=== PATIENT | female | born 1945 | race Caucasian/White ===

== ENCOUNTER 2016-11-16 09:23 | Emergency (ER) | payer OTHER ==
[~2016-11-16 09:23] MED LIST: ALBU1.25 NEB; ALPR-475 PO; CLON-364 PO; DOXY100C2 PO; HYDR-3241 PO; IPRA14.7; IPRA14.7 IH; IPRA4AER INH; MAGN64TA9 PO; METH4TAB2 PO; MOME13HF2 INH; OMEP20CA9 PO; PRED20TA PO; TIOT18CA INH; pro-air
[2016-11-16 11:47] VITALS: BP 128/83
== END 2016-11-16 11:50 | disposition home or self-care (01) ==
LOC: ED 11:44
DX: F41.1 Generalized anxiety disorder (principal); I10 Essential (primary) hypertension; J44.9 Chronic obstructive pulmonary disease, unspecified
CPT/HCPCS: 71020; 93005; 99284

== ENCOUNTER 2017-05-08 01:00 | Inpatient (IN) | payer OTHER ==
[~2017-05-08] VITALS: Ht 157.5 cm; Wt 57.0 kg
[2017-05-08] MEDS ORDERED: SODIUM CHLORIDE 0.9% 1,000 ML IV ONE (01:14)
[2017-05-08] MEDS ORDERED: SODIUM CHLORIDE FLUSH 10ML SYR IVF ONE (01:30)
[2017-05-08] MEDS ORDERED: methylPREDNISolone SOD SUCC 125 MG/2 ML IVP ONE (01:30)
[2017-05-08] MEDS ORDERED: ALBUTEROL/IPRATROPIUM 2.5MG/0.5MG, 3 ML NEB ONE (01:30)
[2017-05-08 01:51] LABS: HEMATOCRIT 38.3 % (34.6-47.8); HEMOGLOBIN 12.4 g/dL (11.7-16.4); WHITE BLOOD COUNT 27.1 x10^3/uL (3.4-10)
[2017-05-08 01:59] LABS: ASPARTATE AMINO TRANSFERASE 37 U/L (15-37); BLOOD UREA NITROGEN 29 mg/dL (7-18)
[2017-05-08 02:04] LABS: IS PT STATUS REG ER OR PRE ER? YES
[2017-05-08 02:12] LABS: DIFF TOTAL CELLS COUNTED 100 CELL DIFF
[2017-05-08 02:12] LABS: ABG COLLECTION SITE RIGHT BRACHIAL
[2017-05-08 02:14] LABS: VERIFY COUNTS? YES
[2017-05-08 02:15] LABS: OVALOCYTES 1+
[2017-05-08] MEDS ORDERED: methylPREDNISolone SOD SUCC 125 MG/2 ML ONE (02:17)
[2017-05-08] MEDS ORDERED: CEFTRIAXONE PMX 1GM/50ML 50 ML IV ONE (02:30)
[2017-05-08] MEDS ORDERED: AZITHROMYCIN 500 MG in SODIUM CHLORIDE 0.9% 250 ML IV ONE (02:30)
[2017-05-08] MEDS ORDERED: SODIUM CHLORIDE 0.9% 1,000ML IVBOLUS ONE (02:30)
[2017-05-08] MEDS ORDERED: CEFTRIAXONE PMX 1GM/50ML 50 ML ONE (02:41)
[2017-05-08] MEDS ORDERED: ENOXAPARIN 40 MG/0.4 ML SQ SCH (03:30)
[2017-05-08] MEDS ORDERED: PHARMACY MAY ADJ FOR RENAL FX MC SCH (03:30)
[2017-05-08] MEDS ORDERED: GLUCAGON 1 MG IM PRN (03:30)
[2017-05-08] MEDS ORDERED: VANCOMYCIN PER PHARMACY IV SCH (03:30)
[2017-05-08] MEDS ORDERED: DEXTROSE 4 GM TAB.CHEW PO PRN (03:30)
[2017-05-08] MEDS ORDERED: ONDANSETRON 2MG/ML, 2ML IV PRN (03:30)
[2017-05-08] MEDS ORDERED: DEXTROSE 50%, 50ML SYRINGE IVPush PRN (03:30)
[2017-05-08] MEDS ORDERED: LEVOFLOXACIN/PMX 750MG/150ML 150 ML IVPB SCH (03:30)
[2017-05-08] MEDS ORDERED: ACETAMINOPHEN 325 MG TABLET PO PRN (03:30)
[2017-05-08] MEDS: morphine SULFATE 10 MG/ML, 1ML IV PRN ×2 (04:55→08:39)
[2017-05-08] MEDS: methylPREDNISolone SOD SUCC 125 MG/2 ML IVPush SCH ×3 (04:58→20:25)
[2017-05-08] MEDS ORDERED: PHARMACOKINETIC MONITORING MC PRN (05:00)
[2017-05-08] MEDS ORDERED: PHARMACOKINETIC CONSULTATION MC ONE (05:00)
[2017-05-08 05:21] VITALS: BP 129/79
[2017-05-08] MEDS: ALBUTEROL/IPRATROPIUM 2.5MG/0.5MG, 3 ML NPPB SCH ×4 (07:00→20:05)
[2017-05-08] MEDS: VANCOMYCIN PMX 1GM/200ML 200 ML IV SCH (07:23)
[2017-05-08] MEDS: INSULIN REGULAR 100 UNITS/ML, 3ML VIAL SQ-INSULIN SCH ×4 (07:38→20:55)
[2017-05-08] MEDS: SODIUM CHLORIDE FLUSH 10ML SYR IVF SCH ×2 (07:38→20:25)
[2017-05-08] MEDS: FLUTICASONE/VILANTEROL 200-25MCG/INH INH SCH (08:40)
[2017-05-08] MEDS ORDERED: SODIUM CHLORIDE 0.9% 1,000ML IV ONE (09:30)
[2017-05-08] MEDS: PIPERACILLIN/TAZO/PMX 4.5GM 100 ML IV SCH ×3 (09:57→22:14)
[2017-05-08 14:04] VITALS: BP 117/72
[2017-05-08] MEDS: HYDROcodone/APAP 5/325 TABLET PO PRN ×2 (16:04→20:25)
[2017-05-08 18:28] VITALS: BP 122/72
[2017-05-08] MEDS: RISPERIDONE 1 MG TABLET PO SCH (20:25)
[2017-05-09 01:05] VITALS: BP 93/57
[2017-05-09] MEDS: HYDROcodone/APAP 5/325 TABLET PO PRN ×5 (01:19→20:35)
[2017-05-09] MEDS: methylPREDNISolone SOD SUCC 125 MG/2 ML IVPush SCH ×3 (04:28→20:36)
[2017-05-09] MEDS: PIPERACILLIN/TAZO/PMX 4.5GM 100 ML IV SCH ×3 (04:28→16:00)
[2017-05-09] MEDS ORDERED: ENOXAPARIN 40 MG/0.4 ML SQ SCH (05:00)
[2017-05-09 05:08] LABS: HEMATOCRIT 29.2 % (34.6-47.8); HEMOGLOBIN 9.5 g/dL (11.7-16.4)
[2017-05-09 05:17] LABS: BLOOD UREA NITROGEN 32 mg/dL (7-18)
[2017-05-09 05:21] LABS: ASPARTATE AMINO TRANSFERASE 14 U/L (15-37)
[2017-05-09] MEDS: VANCOMYCIN PMX 1GM/200ML 200 ML IV SCH (07:20)
[2017-05-09] MEDS: ALBUTEROL/IPRATROPIUM 2.5MG/0.5MG, 3 ML NPPB SCH ×4 (07:25→18:41)
[2017-05-09 07:49] VITALS: BP 116/65
[2017-05-09] MEDS: INSULIN REGULAR 100 UNITS/ML, 3ML VIAL SQ-INSULIN SCH ×4 (08:40→20:36)
[2017-05-09] MEDS: SODIUM CHLORIDE FLUSH 10ML SYR IVF SCH ×2 (09:00→20:36)
[2017-05-09] MEDS: RISPERIDONE 1 MG TABLET PO SCH ×2 (10:11→20:35)
[2017-05-09] MEDS: FLUTICASONE/VILANTEROL 200-25MCG/INH INH SCH (10:12)
[2017-05-09 11:14] LABS: HEMATOCRIT 30.9 % (34.6-47.8); WHITE BLOOD COUNT 10.6 x10^3/uL (3.4-10)
[2017-05-09 13:42] VITALS: BP 151/75
[2017-05-09] MEDS ORDERED: DEXTROSE 50%, 50ML SYRINGE IVPush PRN (16:00)
[2017-05-09] MEDS ORDERED: PHARMACOKINETIC MONITORING MC PRN (16:00)
[2017-05-09] MEDS ORDERED: ACETAMINOPHEN 325 MG TABLET PO PRN (16:00)
[2017-05-09] MEDS ORDERED: GLUCAGON 1 MG IM PRN (16:00)
[2017-05-09] MEDS ORDERED: VANCOMYCIN PER PHARMACY MC SCH (16:00)
[2017-05-09] MEDS ORDERED: DEXTROSE 4 GM TAB.CHEW PO PRN (16:00)
[2017-05-09] MEDS: PIPERACILLIN/TAZO 4.5 GM in SODIUM CHLORIDE 0.9% 100 ML IVPB SCH ×2 (17:23→22:44)
[2017-05-09 17:28] VITALS: BP 99/58
[2017-05-09 19:24] VITALS: BP 127/73
[2017-05-10 02:22] VITALS: BP 124/76
[2017-05-10] MEDS: HYDROcodone/APAP 5/325 TABLET PO PRN ×4 (03:33→20:01)
[2017-05-10] MEDS: methylPREDNISolone SOD SUCC 125 MG/2 ML IVPush SCH ×3 (04:19→20:01)
[2017-05-10] MEDS: PIPERACILLIN/TAZO 4.5 GM in SODIUM CHLORIDE 0.9% 100 ML IVPB SCH ×4 (04:21→22:33)
[2017-05-10 05:57] LABS: TOTAL IRON BINDING CAPACITY 172 mcg/dL (250-450)
[2017-05-10] MEDS: ALBUTEROL/IPRATROPIUM 2.5MG/0.5MG, 3 ML NPPB SCH ×4 (06:33→19:40)
[2017-05-10 06:51] VITALS: BP 138/73
[2017-05-10] MEDS: INSULIN REGULAR 100 UNITS/ML, 3ML VIAL SQ-INSULIN SCH ×4 (07:45→21:14)
[2017-05-10] MEDS: VANCOMYCIN PMX 1GM/200ML 200 ML IV SCH (07:45)
[2017-05-10] MEDS: FLUTICASONE/VILANTEROL 200-25MCG/INH INH SCH (07:45)
[2017-05-10] MEDS: RISPERIDONE 1 MG TABLET PO SCH ×2 (07:46→20:01)
[2017-05-10] MEDS: SODIUM CHLORIDE FLUSH 10ML SYR IVF SCH ×2 (07:46→20:01)
[2017-05-10 13:25] VITALS: BP 145/77
[2017-05-10 20:04] VITALS: BP 152/77
[2017-05-11] MEDS: HYDROcodone/APAP 5/325 TABLET PO PRN ×3 (01:54→10:23)
[2017-05-11 02:02] VITALS: BP 179/86
[2017-05-11] MEDS: methylPREDNISolone SOD SUCC 125 MG/2 ML IVPush SCH ×2 (04:52→13:16)
[2017-05-11] MEDS: PIPERACILLIN/TAZO 4.5 GM in SODIUM CHLORIDE 0.9% 100 ML IVPB SCH ×2 (04:52→10:23)
[2017-05-11 06:40] VITALS: BP 135/71
[2017-05-11] MEDS: VANCOMYCIN PMX 1GM/200ML 200 ML IV SCH (07:04)
[2017-05-11] MEDS: ALBUTEROL/IPRATROPIUM 2.5MG/0.5MG, 3 ML NPPB SCH ×3 (07:05→15:25)
[2017-05-11] MEDS: SODIUM CHLORIDE FLUSH 10ML SYR IVF SCH (08:21)
[2017-05-11] MEDS: RISPERIDONE 1 MG TABLET PO SCH (08:21)
[2017-05-11] MEDS: FLUTICASONE/VILANTEROL 200-25MCG/INH INH SCH (08:21)
[2017-05-11] MEDS: INSULIN REGULAR 100 UNITS/ML, 3ML VIAL SQ-INSULIN SCH ×2 (08:23→11:00)
[2017-05-11 12:50] VITALS: BP 136/75
== END 2017-05-11 16:50 | disposition home or self-care (01) | DRG 871 ==
LOC: ED 01:16 → EDIP 02:42 → CCU 04:26 → 3NE 13:45
PROVIDERS: ADMIT Internal Medicine; ATTEND Internal Medicine
PROC: 0T9B70Z Drainage of Bladder with Drainage Device, Via Natural or Artificial Opening (ICD-10-PCS; principal; 2017-05-08)
DX: A41.9 Sepsis, unspecified organism (principal); J96.21 Acute and chronic respiratory failure with hypoxia; J15.9 Unspecified bacterial pneumonia; E46 Unspecified protein-calorie malnutrition; Z99.81 Dependence on supplemental oxygen; J96.22 Acute and chronic respiratory failure with hypercapnia; J44.0 Chronic obstructive pulmonary disease with (acute) lower respiratory infection; J44.1 Chronic obstructive pulmonary disease with (acute) exacerbation; F41.9 Anxiety disorder, unspecified; I10 Essential (primary) hypertension; Z79.899 Other long term (current) drug therapy; Z87.891 Personal history of nicotine dependence; Z90.710 Acquired absence of both cervix and uterus; Z88.8 Allergy status to other drugs, medicaments and biological substances; Z68.23 Body mass index [BMI] 23.0-23.9, adult
CPT/HCPCS: 36415; 36600; 71010; 80053; 80202; 81001; 82803; 82962; 83540; 83550; 83605; 83735; 84145; 84484; 85025; 87040; 87077; 87081; 87086; 87186; 93005; 94640; 96361; 96365; 96366; 96368; 96375; J0456; J0696; J1650; J1815; J1956; J2405; J2543; J3370; J7620; J2270; J2930; J7030; J7050